=== PATIENT | male | born 1935 | race Caucasian/White ===

== ENCOUNTER 2016-11-26 10:13 | Outpatient (CLI) | payer MEDICARE, OTHER ==
--- NOTE | 2016-11-26 11:46 | Diagnostic Imaging Report ---
[facility] [address] [facility].[address] 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 The lungs are clear and well expanded without infiltrate, noncalcified nodule, or pleural effusion. Osseous structures are unremarkable. Heart size and pulmonary vascularity are normal. IMPRESSION: No evidence of lung metastases. Electronically signed on Nov 26, 2016 10:55:39 AM OLD TESTAMENT PROFESSOR by: Alberto ASH
== END 2016-11-26 13:46 ==
LOC: RAD 10:13
PROVIDERS: ATTEND Specialist
DX: Z85.820 Personal history of malignant melanoma of skin (principal)
CPT/HCPCS: 71020

== ENCOUNTER 2017-11-12 10:15 | Outpatient (CLI) | payer MEDICARE, OTHER ==
[2017-11-12 11:03] LABS: eGFR (African) > 60; eGFR (Non-African) > 60
--- NOTE | 2017-11-12 11:08 | Diagnostic Imaging Report ---
HARMAN GREENE [facility] [address] [facility] [address] [place] [id number]. [id number] Report Submission Date: Nov 12, 2017 10:46:32 AM SPLICING TECHNICIAN Patient Study Name: SINDY IQBAL Date: Nov 12, 2017 10:35:21 AM SPLICING TECHNICIAN Modality Type: CR Gender: M Description: CHEST : 39 Institution: [facility] Physician: HARMAN GREENE Examination: PA and lateral chest. History: Evaluate lung harper. History of melanoma. Comparison exam: None provided Findings: PA lateral chest demonstrate a normal cardiac and mediastinal silhouette. No focal infiltrate. No blunting of the costophrenic margins. Osseous structures are appropriate for age. Impression: No acute pulmonary process. Electronically signed on Nov 12, 2017 10:46:32 AM SPLICING TECHNICIAN by: Manolo ASH
== END 2017-11-12 10:17 ==
LOC: LAB 10:15
PROVIDERS: ATTEND Nurse Practitioner Family
DX: Z85.820 Personal history of malignant melanoma of skin (principal)
CPT/HCPCS: 36415; 71020; 80053

== ENCOUNTER 2018-11-12 09:56 | Outpatient (CLI) | payer MEDICARE, OTHER ==
[2018-11-12 10:50] LABS: eGFR (Non-African) > 60
--- NOTE | 2018-11-13 04:52 | Diagnostic Imaging Report ---
HARMAN GREENE [facility] [address] [facility] [address] [place] [id number] Report Submission Date: Nov 12, 2018 1:24:32 PM DIRECTOR SOFTWARE Patient Study Name: SINDY IQBAL Date: Nov 12, 2018 10:38:44 AM DIRECTOR SOFTWARE Modality Type: DX Gender: M Description: CHEST : 39 Institution: [facility] Physician: HARMAN GREENE Examination: PA and lateral chest. History: Evaluate lung harper. MALIGNANT MELANOMA OF SKIN, PT STATES NO CHEST COMPLAINTS Comparison exam: None available for direct view. Findings: PA and lateral views of the chest demonstrates a normal cardiac and mediastinal silhouette. No focal infiltrate. No blunting of the costophrenic margins. Osseous structures are appropriate for age. Impression: No acute pulmonary process. Electronically signed on Nov 12, 2018 1:24:32 PM DIRECTOR SOFTWARE by: Manolo ASH
== END 2018-11-12 09:58 ==
LOC: RAD 09:56
PROVIDERS: ATTEND Nurse Practitioner Family
DX: C43.9 Malignant melanoma of skin, unspecified (principal)
CPT/HCPCS: 36415; 71046; 80053